=== PATIENT | female | born 1950 ===

== ENCOUNTER → 2022-02-13 | Outpatient (CLI) | payer MEDICARE, OTHER ==
[2022-02-13 07:59] LABS: Hematocrit 45.4 % (33.0-51.0); Mean Corpuscular HGB Conc 30.8 g/dL (31.5-36.5); Mean Corpuscular Volume 97 fL (80-100); Platelet Count 109 K/mm3 (150-400); RDW Coefficient Variation 17.2 % (11.7-14.2); RDW Standard Deviation 60.5 fL (35.1-46.3); Red Blood Cell Count 4.67 M/mm3 (3.80-5.20); White Blood Cell Count 4.77 K/mm3 (4.00-11.30)
[2022-02-13 08:09] LABS: Bun/Creatinine Ratio 9.7 (12.0-20.0); Calcium, Blood 9.8 mg/dL (8.5-10.1); Creatinine, Blood 3.9 mg/dL (0.40-1.00); Potassium, Blood 4.1 mmol/L (3.5-5.5)
[2022-02-13 09:08] LABS: Follicle Stimulating Hormone 1.1 mIU/ml; Thyroid Stimulating Hormone 1.08 uIU/mL (0.360-4.800); Triiodothyronine, Free 2.06 pg/mL (2.18-3.98)
== END | disposition home or self-care (01) ==
LOC: LAB UVN 05:30 → EDSTATUS 14:51
PROVIDERS: Internal Medicine
DX: E11.22 Type 2 diabetes mellitus with diabetic chronic kidney disease (principal); N18.6 End stage renal disease
CPT/HCPCS: 80048; 83001; 84443; 84481; 85027